=== PATIENT | female | born 1995 | race Caucasian/White ===

== ENCOUNTER → 2017-11-02 14:42 | Outpatient (CLI) | payer OTHER, SELFPAY ==
[2017-11-02 16:26] LABS: Hemoglobin 11.5 g/dL (12.0-16.0)
[2017-11-02 16:30] LABS: GTT (PREG) 1 Hour PP 50gm Dose 133 mg/dL (76-139)
== END ==
PROVIDERS: Visit Provider Family Medicine
DX: Z34.93 Encounter for supervision of normal pregnancy, unspecified, third trimester (principal); Z3A.30 30 weeks gestation of pregnancy
CPT/HCPCS: 36415; 82950; 85014; 85018

== ENCOUNTER 2017-11-13 07:36 | Outpatient (CLI) | payer OTHER, SELFPAY ==
[2017-11-13] MEDS: TERBUTALINE 1 MG/ML VIAL 0.25 MG SUBCUT (08:30)
--- NOTE | 2017-11-13 13:04 | PM.OBTRLD ---
Visit Information Visit Information Date of evaluation: 11/13/17 Primary OB Provider: Partha Morrissey On-call OB Provider: Khadijah Layne Reason for Evaluation: Yes pre-term labor Evaluation Evaluation Baseline heart rate: 145 Variability: Moderate (11-25) monitor accelerations: Present monitor decelerations: Absent Contraction Frequency (minutes): 15 Uterine Contraction Intensity: Mild Category of Tracing: I Diagnosis, Plan/Disposition Final Diagnosis (1) 32 weeks gestation of : Current Visit: No Status: Acute (2) contractions: Current Visit: No Status: Acute Plan/Disposition Plan: Assesment: 22-year-old 2 para 1 at 32 weeks gestation with contractions Plan: Subcu terbutaline 0.25 mg x1 Push fluids Discharge to home Follow up with Dr. Morrissey later this week
== END 2017-11-13 08:40 | disposition home or self-care (01) ==
LOC: LABOR 11-14 13:27 → OB 11-14 13:27
PROVIDERS: Visit Provider Family Medicine
DX: O60.03 Preterm labor without delivery, third trimester (principal); Z3A.32 32 weeks gestation of pregnancy
CPT/HCPCS: 59025; 96372; G0378; G0379

== ENCOUNTER → 2017-12-09 11:19 | Outpatient (CLI) | payer OTHER, SELFPAY ==
[2017-12-10 08:40] LABS: Strep Grp B PCR NEG for Grp B Strep
== END ==
PROVIDERS: Visit Provider Family Medicine
DX: Z3A.35 35 weeks gestation of pregnancy (principal)
CPT/HCPCS: 87653

== ENCOUNTER 2018-01-01 00:49 | Inpatient (IN) | payer OTHER, SELFPAY ==
[2018-01-01 01:57] LABS: Add Manual Diff / Slide Review NO; Basophils Percent Auto 0.3 % (0-2); Eosinophils Percent Auto 0.8 % (2-4); Hematocrit 37.8 % (36-46); Hemoglobin 12.9 g/dL (12.0-16.0); Lymphocytes Percent Auto 21.8 % (25-40); Mean Corpuscular HGB Conc 34.2 % (30-36); Mean Corpuscular Hemoglobin 32.4 PG (26-34); Mean Corpuscular Volume 94.7 fL (80-100); Monocytes Percent Auto 7.7 % (3-14); Neutrophils Absolute Auto 9200 /uL (3000-5900); Neutrophils Percent Auto 69.4 % (50-75); Platelet Count 194 X10^3/uL (150-400); Red Blood Cell Count 3.99 X10^6/uL (4.0-5.2); Red Cell Distribution Width 14.5 % (11.6-14.8); White Blood Cell Count 13.2 X10^3/uL (4.5-11.0)
[2018-01-01] MEDS: LACTATED RINGERS 1,000 ML 100 ML IV (02:26)
[2018-01-01 03:04] VITALS: BP 105/52
--- NOTE | 2018-01-01 03:19 | PM.OBHP.1 ---
OB HPI History of Present Illness Chief complaint: EVALUATION OF LABOR Narrative: Mohsen Mike is a 22 year old female G2 para 1 LMP 04/02/2017 with estimated due date 01/07/2018 ultrasound estimated due date 01/07/2018 which puts her at 39+ weeks gestational age. Patient had routine care establish care at the [facility]. Transferred at 28 weeks. Patient had a total weight gain of approximately 25 lb. Patient has a history complicated previously by labor. During this she had some contractions and was on nifedipine. Patient presented to the labor and delivery floor in labor. She was at home in bed her water broke at approximately 11:00 p.m.. She began to present in active labor she presented to Labor and delivery with clear fluid reassuring heart tones and 5-6 cm dilated. Strip was category 1. labs show blood type B positive antibody screen negative rubella immune VDRL nonreactive urine cultures negative hepatitis-B surface antigen negative GBS negative hematocrit 33.0. Patient denies any significant past medical history. She is not on any radicular medications. Past surgical history of wisdom teeth. Evaluation Evaluation Laboratory results: Laboratory Tests 01/01/18 01/01/18 01:40 01:40 WBC 13.2 H RBC 3.99 L Hgb 12.9 Hct 37.8 MCV 94.7 MCH 32.4 MCHC 34.2 RDW 14.5 Plt Count 194 Neut % (Auto) 69.4 Lymph % (Auto) 21.8 L [place] % (Auto) 7.7 Eos % (Auto) 0.8 L Baso % (Auto) 0.3 Neut # (Auto) 9200 H Blood Type B Positive Antibody Screen Negative [facility] Social History Smoking Status: Former smoker Meds Home Medications Medication Instructions Recorded Confirmed Type ondansetron HCl [Zofran] 4 mg PO Q12H 11/13/17 11/13/17 History nifedipine 10 mg capsule 10 mg PO Q6H PRN #30 cap 11/17/17 Rx nifedipine ER 30 mg 30 mg PO Q12H #60 tab 11/25/17 Rx tablet,extended release Allergies Allergy/AdvReac Type Severity Reaction Status Date / Time No Known Drug Allergies Allergy Verified 11/13/17 08:22 Exam Vital Signs (past 8 hours): - 01/01/18 03:04 Blood Pressure 105/52 L Narrative Exam Narrative: . General: Alert no apparent distress. Affect is appropriate. [place] it is uncomfortable. HEENT: Neck is supple without lymphadenopathy pupils equal round and reactive. Cardio: S1-S2 regular rate and rhythm. Respiratory: Lungs clear to auscultation. Abdomen: Gravid. Extremities: Normal deep tendon reflexes trace edema. [place]: [place] regularly every 3-5 minutes with 60 minute contractions moderate and strength. heart tones: Good heart tones 130s to 140s reactive strip. Objective Labs Result Diagrams: 01/01/18 01:40 Labs: Laboratory Results - last 24 hr 01/01/18 01/01/18 01:40 01:40 WBC 13.2 H RBC 3.99 L Hgb 12.9 Hct 37.8 MCV 94.7 MCH 32.4 MCHC 34.2 RDW 14.5 Plt Count 194 Neut % (Auto) 69.4 Lymph % (Auto) 21.8 L [place] % (Auto) 7.7 Eos % (Auto) 0.8 L Baso % (Auto) 0.3 Neut # (Auto) 9200 H Blood Type B Positive Antibody Screen Negative Assessment and Plan Plan: Plan: 21-year-old female G2 para 1 at 39+ weeks in active labor spontaneous rupture of membranes at home at 11:00 p.m. with clear fluid. She was in active labor. Presented to the Center with category 1 strip. Patient had normal blood tests. He desires an epidural which was provided. Patient will continue to proceed with routine labor care.
--- NOTE | 2018-01-01 03:58 | PM.OBPRVD ---
Delivery date: 01/01/18 Intrapartal events: None Induction method: none Delivery monitor: external FHT Route of delivery: Episiotomy description: None Laceration description: None Estimated blood loss (mL): 250 Anesthesia type: Epidural Narrative: Stage I of labor 4 hr. Spontaneous rupture membranes at home clear fluid. No augmentation of labor. heart tones are reassuring category 1. Epidural anesthesia provided with great results. Stage II approximately 45 min. Delivery of viable male under epidural anesthesia. Category 1 tracing throughout. Mom pushed to and had good descent of the baby. Baby was delivered in occiput anterior position. Delivery of head without difficulty there was no nuchal cord and delivery with shoulders. Baby was placed on mother's abdomen baby was vigorous and active. Had spontaneous cry. Mom was given 10 units of IM Pitocin without difficulty. Stage III approximately 5 min delivery of intact placenta with three-vessel cord. Attention was took an afterwards to the vagina and cervix are is no cervix or vaginal lacerations. Baby had a firm uterus. Bleeding was 250 cc total. Mom and baby were resting comfortably afterwards
[2018-01-01] MEDS: IBUPROFEN 600 MG TABLET PO ×4 (05:13→23:13)
[2018-01-01] MEDS: DOCUSATE 250 MG CAPSULE PO (09:24)
[2018-01-01] MEDS: PRENATAL VIT,CALC/IRON/FOLIC 1 TABLET 1 TAB PO (09:24)
[2018-01-01] MEDS: ACETAMINOPHEN 325 MG TABLET 650 MG PO ×2 (18:37→23:12)
[2018-01-02 05:20] LABS: Hematocrit 35.4 % (36-46)
[2018-01-02] MEDS: IBUPROFEN 600 MG TABLET PO (08:16)
[2018-01-02] MEDS: DOCUSATE 250 MG CAPSULE PO (08:16)
[2018-01-02] MEDS: PRENATAL VIT,CALC/IRON/FOLIC 1 TABLET 1 TAB PO (08:16)
--- NOTE | 2018-01-02 08:31 | P.DS_ITS ---
History of Present Illness Chief complaint: LABOR & DELIVERY Discharge Providers Date of admission: 01/01/18 01:24 Consults: 01/01/18 05:03 Consult to [employer] Routine Comment: Discharge provider: Partha Morrissey MD Summary Discharge Diagnosis: Term intrauterine with Delivery of viable male infant Routine care Hospital Course: Patient was admitted to the hospital with active labor spontaneous rupture of membranes. Patient had a normal course of labor. Received epidural anesthesia. Delivered viable male without any difficulty. she did well. Her pain was well controlled she was ambulating eating tolerating her diet. Blood pressure vital signs and blood counts remained stable. The time of discharge. Breast-feeding was working well and she will be discharged home for follow-up appointment in 6 weeks. Status at Discharge Functional status at discharge: independent ambulation Exam Narrative Exam Narrative: General: Alert no apparent distress. Affect is appropriate. [place] it is uncomfortable. HEENT: Neck is supple without lymphadenopathy pupils equal round and reactive. Cardio: S1-S2 regular rate and rhythm. Respiratory: Lungs clear to auscultation. Abdomen: Uterus firm. Incision clean dry and intact. Extremities: Normal deep tendon reflexes trace edema. Objective Labs Result Diagrams: 01/02/18 04:53 Labs: Laboratory Results - last 24 hr 01/02/18 04:53 Hgb 12.0 Hct 35.4 L Discharge Plan Discharge Plan Patient Disposition: Home, Self-Care Discharge comment: Discharge home follow-up in 6 weeks. Discharge Med Rec/Prescriptions Prescriptions: New hydrocodone-acetaminophen 5-325 mg Tablet 1 tab PO Q4HR Qty: 15 RF: 0 ibuprofen 600 mg Tablet 600 mg PO Q6HR PRN (Reason: Pain, Mild (1-3)) Qty: 30 RF: 0 docusate sodium 250 mg Capsule 250 mg PO DAILY Qty: 30 RF: 0 vit,[id number] [Prenatabs Rx] 29 mg iron- 1 mg Tablet 1 tab PO DAILY 90 Days RF: 0 Discontinued nifedipine 30 mg tablet extended release 30 mg PO Q12H Qty: 60 RF: 0 nifedipine 10 mg capsule 10 mg PO Q6H PRN (Reason: Contractions) Qty: 30 RF: 0 ondansetron HCl [Zofran] 4 mg Tablet 4 mg PO Q12H RF: 0 Provider Discharge Instructions Diet comment: General diet Activity: As tolerated Discharge Data Attending Provider: Partha Morrissey Admit Date/Time: 01/01/18 01:24
[2018-01-02 09:13] VITALS: BP 114/81; PULSE 89; RESP 16; TEMP 36.6
== END 2018-01-02 12:31 | disposition home or self-care (01) | DRG 775 ==
PROVIDERS: Admitting Provider Obstetrics & Gynecology; Visit Provider Family Medicine
DX: O80 Encounter for full-term uncomplicated delivery (principal); Z37.0 Single live birth; Z3A.39 39 weeks gestation of pregnancy
CPT/HCPCS: 01967; 36415; 59050; 59410; 84112; 85014; 85018; 85025; 86850; 86900; 86901; G0378; G0379

== ENCOUNTER 2018-03-22 10:16 | Emergency (ER) | payer OTHER, SELFPAY ==
[2018-03-22 10:19] VITALS: BP 137/81; PULSE 114; RESP 18; O2SAT 100; BMI 27.6
--- NOTE | 2018-03-22 12:19 | ED.SKABFB ---
HPI - Skin/Abscess/Foreign Bdy <CUONG Cheng - Last Filed: 03/22/18 13:24> General Chief complaint: Skin/Abscess/Foreign Body Stated complaint: wound on lft leg oozing piss Time Seen by Provider: 03/22/18 12:05 Source: patient Mode of arrival: ambulatory Limitations: no limitations History of Present Illness HPI narrative: Patient presents with chief complaint of wound on her left leg since November. She suspects it was a spider bite at that point time. [place] and has been referred to Dermatology. She most recently saw physician yesterday For it, and received a dermatology referral. However over night she developed low-grade fevers, some purulent drainage from the wound and is concerned about infection while she waits for her dermatology appointment. she denies any nausea vomiting or diarrhea but complains of low-grade temperatures for the past 2 days. She denies any lightheadedness or dizziness. she complains of overall malaise and fatigue. She is breast feeding. Related Data Previous Rx's Medication Instructions Recorded vit,[id number] 1 tab PO DAILY 90 Days tab 01/02/18 [Prenatabs Rx] cephalexin 500 mg PO TID #30 cap 03/22/18 Allergies Allergy/AdvReac Type Severity Reaction Status Date / Time No Known Drug Allergies Allergy Verified 03/22/18 10:23 Review of Systems <[facility] - Last Filed: 03/22/18 13:24> Review of Systems GENERAL: See HPI HEENT: Denies sinus pain, ear pain, sore throat, difficulty swallowing, dizziness. RESPIRATORY: Denies dyspnea, cough, wheezing, hemoptysis, sputum. CARDIOVASCULAR: Denies chest pain, palpitations, orthopnea, edema, GASTROINTESTINAL: Denies nausea, vomiting, abdominal pain, diarrhea, constipation, melena. : Denies dysuria, frequency, incontinence, hematuria, urinary retention. MUSCULOSKELETAL: denies weakness, joint pain, or bony pain SKIN: see HPI NEUROLOGIC: Denies weakness, headache, numbness, change in speech, confusion, seizures, incoordination. PSYCHIATRIC: No concerning psychosocial issues. 12 point review of systems is negative except for those stated above Exam <[facility] - Last Filed: 03/22/18 13:24> Narrative Exam Narrative: GENERAL: This is a well-nourished, well-developed patient, in mild distress. HEAD: Atraumatic. Normocephalic. No temporal or scalp tenderness. EYES: Pupils equal round and reactive. Extraocular motions intact. No scleral icterus. No injection or drainage. ENT: Nose without bleeding, purulent drainage or septal hematoma. Throat without erythema, tonsillar hypertrophy or exudate. Uvula midline. Airway patent. NECK: Trachea midline. No JVD or lymphadenopathy. Supple, nontender, no meningeal signs. CARDIOVASCULAR: Regular rate and rhythm without murmurs, gallops, or rubs. RESPIRATORY: Clear to auscultation. Breath sounds equal bilaterally. No wheezes, rales, or rhonchi. GASTROINTESTINAL: Abdomen soft, non-tender, nondistended. No hepato-splenomegaly, or palpable masses. No guarding. EXTREMITIES: No clubbing, cyanosis, or edema. No joint tenderness, effusion, or edema noted. BACK: Nontender without deformity or crepitance. No flank tenderness. NEURO: AOx3. SKIN: 4 x 3 cm area of erythema lateral aspect of left thigh. No palpable abscess or fluctuance. Some dried crusty skin over it. Dark red in Center, with purulent drainage noted. No area of openness. Initial Vital Signs Initial Vital Signs: Vital Signs Pulse Rate 114 H 03/22/18 10:19 Respiratory Rate 18 03/22/18 10:19 Blood Pressure 137/81 03/22/18 10:19 Pulse Oximetry 100 03/22/18 10:19 <Sharon Bello MD - Last Filed: 03/22/18 21:19> Initial Vital Signs Initial Vital Signs: Vital Signs Pulse Rate 114 H 03/22/18 10:19 Respiratory Rate 18 03/22/18 10:19 Blood Pressure 137/81 03/22/18 10:19 Pulse Oximetry 100 03/22/18 10:19 Course <ROGELIO Cheng - Last Filed: 03/22/18 13:24> Orders Ordered: ED Orders 03/22/18 12:50 Wound Culture and Gram Stain Stat Vital Signs - 8 hr 03/22/18 10:19 03/22/18 12:47 Pulse Rate 114 H 76 Respiratory Rate 18 15 Blood Pressure 137/81 Blood Pressure [Left Arm] 109/60 Pulse Oximetry 100 98 <Sharon Bello MD - Last Filed: 03/22/18 21:19> Orders Ordered: ED Orders 03/22/18 12:50 Wound Culture and Gram Stain Stat Vital Signs - 8 hr 03/22/18 10:19 03/22/18 12:47 Pulse Rate 114 H 76 Respiratory Rate 18 15 Blood Pressure 137/81 Blood Pressure [Left Arm] 109/60 Pulse Oximetry 100 98 MDM - Skin/Abscess/Foreign Bdy <YURI Cheng-BC - Last Filed: 03/22/18 13:24> MDM Narrative Medical decision making narrative: Patient presents with wound on left leg ongoing since November. She has seen physicians at least 3 times for this and is waiting on a dermatology consult. However given her recent onset of low-grade fevers and purulent drainage from the wound, I will do a course of antibiotics at this point time while she waits for Dermatology. The wound apparently became infected. Given that she is breast-feeding at this time, I will use Keflex. a wound culture was taken from the purulent drainage. I discussed at length return precautions of fever, worsening or no improvement. Discussed keeping dermatology appointment. Patient had no questions or concerns upon discharge. Discharge Plan Departure Patient Disposition: Home Clinical Impression: Wound infection Discharge Date/Time: 03/22/18 12:52 Interventions: ED Discharge Assessment Last Done: 03/22/18 12:52 Instructions: DI for Wound Infection Activity Restrictions/Additional Instructions: Given your fever, malaise and the drainage from her wound, I am starting you on an antibiotic for an infection in her wound. This antibiotic is safe for breast-feeding. I also took a wound culture of the drainage, to make sure that the antibiotic is effective for the infection you have. Please follow-up with primary care and follow-up with dermatology scheduled. Please be re-evaluated for any severe fevers, worsening of the wound after several doses of antibiotics, inability to keep down fluids or any acute concerns. Prescriptions: New cephalexin 500 mg capsule 500 mg PO TID Qty: 30 RF: 0 No Action vit,[id number] [Prenatabs Rx] 29 mg iron- 1 mg Tablet 1 tab PO DAILY 90 Days RF: 0 Referrals: [facility] [Outside]
--- NOTE | 2018-03-22 12:26 | ED_ITS ---
HPI - Skin/Abscess/Foreign Bdy <CUONG Cheng - Last Filed: 03/22/18 13:24> General Chief complaint: Skin/Abscess/Foreign Body Stated complaint: wound on lft leg oozing piss Time Seen by Provider: 03/22/18 12:05 Source: patient Mode of arrival: ambulatory Limitations: no limitations History of Present Illness HPI narrative: Patient presents with chief complaint of wound on her left leg since November. She suspects it was a spider bite at that point time. [place] and has been referred to Dermatology. She most recently saw physician yesterday For it, and received a dermatology referral. However over night she developed low-grade fevers, some purulent drainage from the wound and is concerned about infection while she waits for her dermatology appointment. she denies any nausea vomiting or diarrhea but complains of low-grade temperatures for the past 2 days. She denies any lightheadedness or dizziness. she complains of overall malaise and fatigue. She is breast feeding. Related Data Previous Rx's Medication Instructions Recorded vit,[id number] 1 tab PO DAILY 90 Days tab 01/02/18 [Prenatabs Rx] cephalexin 500 mg PO TID #30 cap 03/22/18 Allergies Allergy/AdvReac Type Severity Reaction Status Date / Time No Known Drug Allergies Allergy Verified 03/22/18 10:23 [facility] Systems [facility] Last Filed: 03/22/18 13:24> Review of Systems GENERAL: See HPI HEENT: Denies sinus pain, ear pain, sore throat, difficulty swallowing, dizziness. RESPIRATORY: Denies dyspnea, cough, wheezing, hemoptysis, sputum. CARDIOVASCULAR: Denies chest pain, palpitations, orthopnea, edema, GASTROINTESTINAL: Denies nausea, vomiting, abdominal pain, diarrhea, constipation, melena. : Denies dysuria, frequency, incontinence, hematuria, urinary retention. MUSCULOSKELETAL: denies weakness, joint pain, or bony pain SKIN: see HPI NEUROLOGIC: Denies weakness, headache, numbness, change in speech, confusion, seizures, incoordination. PSYCHIATRIC: No concerning psychosocial issues. 12 point review of systems is negative except for those stated above Exam <[facility] Last Filed: 03/22/18 13:24> Narrative Exam Narrative: GENERAL: This is a well-nourished, well-developed patient, in mild distress. HEAD: Atraumatic. Normocephalic. No temporal or scalp tenderness. EYES: Pupils equal round and reactive. Extraocular motions intact. No scleral icterus. No injection or drainage. ENT: Nose without bleeding, purulent drainage or septal hematoma. Throat without erythema, tonsillar hypertrophy or exudate. Uvula midline. Airway patent. NECK: Trachea midline. No JVD or lymphadenopathy. Supple, nontender, no meningeal signs. CARDIOVASCULAR: Regular rate and rhythm without murmurs, gallops, or rubs. RESPIRATORY: Clear to auscultation. Breath sounds equal bilaterally. No wheezes , rales, or rhonchi. GASTROINTESTINAL: Abdomen soft, non-tender, nondistended. No hepato-splenomegaly , or palpable masses. No guarding. EXTREMITIES: No clubbing, cyanosis, or edema. No joint tenderness, effusion, or edema noted. BACK: Nontender without deformity or crepitance. No flank tenderness. NEURO: AOx3. SKIN: 4 x 3 cm area of erythema lateral aspect of left thigh. No palpable abscess or fluctuance. Some dried crusty skin over it. Dark red in [place], with purulent drainage noted. No area of openness. Initial Vital Signs Initial Vital Signs: Vital Signs Pulse Rate 114 H 03/22/18 10:19 Respiratory Rate 18 03/22/18 10:19 Blood Pressure 137/81 03/22/18 10:19 Pulse Oximetry 100 03/22/18 10:19 <Sharon Bello MD - Last Filed: 03/22/18 21:19> Initial Vital Signs Initial Vital Signs: Vital Signs Pulse Rate 114 H 03/22/18 10:19 Respiratory Rate 18 03/22/18 10:19 Blood Pressure 137/81 03/22/18 10:19 Pulse Oximetry 100 03/22/18 10:19 Course <ROGELIO Cheng - Last Filed: 03/22/18 13:24> Orders Ordered: ED Orders 03/22/18 12:50 Wound Culture and Gram Stain Stat Vital Signs - 8 hr 03/22/18 10:19 03/22/18 12:47 Pulse Rate 114 H 76 Respiratory Rate 18 15 Blood Pressure 137/81 Blood Pressure [Left Arm] 109/60 Pulse Oximetry 100 98 <Sharon Bello MD - Last Filed: 03/22/18 21:19> Orders Ordered: ED Orders 03/22/18 12:50 Wound Culture and Gram Stain Stat Vital Signs - 8 hr 03/22/18 10:19 03/22/18 12:47 Pulse Rate 114 H 76 Respiratory Rate 18 15 Blood Pressure 137/81 Blood Pressure [Left Arm] 109/60 Pulse Oximetry 100 98 MDM - Skin/Abscess/Foreign Bdy <YURI Cheng-BC - Last Filed: 03/22/18 13:24> MDM Narrative Medical decision making narrative: Patient presents with wound on left leg ongoing since November. She has seen physicians at least 3 times for this and is waiting on a dermatology consult. However given her recent onset of low-grade fevers and purulent drainage from the wound, I will do a course of antibiotics at this point time while she waits for Dermatology. The wound apparently became infected. Given that she is breast-feeding at this time, I will use Keflex. a wound culture was taken from the purulent drainage. I discussed at length return precautions of fever, worsening or no improvement. Discussed keeping dermatology appointment. Patient had no questions or concerns upon discharge. Discharge Plan Departure Patient Disposition: Home Clinical Impression: Wound infection Discharge Date/Time: 03/22/18 12:52 Interventions: ED Discharge Assessment Last Done: 03/22/18 12:52 Instructions: DI for Wound Infection Activity Restrictions/Additional Instructions: Given your fever, malaise and the drainage from her wound, I am starting you on an antibiotic for an infection in her wound. This antibiotic is safe for breast-feeding. I also took a wound culture of the drainage, to make sure that the antibiotic is effective for the infection you have. Please follow-up with primary care and follow-up with dermatology scheduled. Please be re-evaluated for any severe fevers, worsening of the wound after several doses of antibiotics , inability to keep down fluids or any acute concerns. Prescriptions: New cephalexin 500 mg capsule 500 mg PO TID Qty: 30 RF: 0 No Action vit,[id number] [Prenatabs Rx] 29 mg iron- 1 mg Tablet 1 tab PO DAILY 90 Days RF: 0 Referrals: [facility] [Outside]
[2018-03-22 12:47] VITALS: BP 109/60; PULSE 76; RESP 15; O2SAT 98
== END 2018-03-22 12:52 | disposition home or self-care (01) ==
PROVIDERS: Emergency Provider Nurse Practitioner Family
DX: S81.802A Unspecified open wound, left lower leg, initial encounter (principal); L08.9 Local infection of the skin and subcutaneous tissue, unspecified
CPT/HCPCS: 87070; 87075; 87205; 99283

== ENCOUNTER 2018-07-01 14:32 | Emergency (ER) | payer OTHER, SELFPAY ==
[2018-07-01] MEDS: ALBUTEROL/IPRATROPIUM 3 ML AMPUL INH (14:50)
[2018-07-01 14:53] VITALS: BP 137/83; PULSE 114; PULSE 118; RESP 20; TEMP 37.1; O2SAT 100; O2SAT 98
[2018-07-01 14:57] VITALS: PULSE 106; RESP 14; O2SAT 98
[2018-07-01] MEDS: ALBUTEROL 2.5 MG/3 ML NEB (ADULT) INH ×2 (15:00→16:18)
--- NOTE | 2018-07-01 15:01 | ED.SOB ---
HPI - SOB/Dyspnea <Farzaneh Canales PA-C - Last Filed: 07/01/18 22:05> General Chief Complaint: Shortness of Breath/Dyspnea Stated Complaint: shortness of breath, cough Time Seen by Provider: 07/01/18 14:59 Source: patient Mode of arrival: ambulatory Limitations: no limitations History of Present Illness This healthy 22-year-old female with history of rare reactive airways comes in due to recurrent, worsening cough for the last 2 days. She states that she gave in December, not breast feeding currently. She had prolonged cough and respiratory symptoms March to April, but did get better aside from a persistent rattling sensation on the left side of her chest. Five weeks ago, she developed some worsening recurrent cough again and was started on inhaler. She states that the rattling in her chest got better with that, but she has had some persistent cough, mixed wet and dry. She states this had largely started to resolve and she went for a run on . For the last 2 days, especially today, she has had acutely worsening cough and tight chest with cough fits. She has not noted any wheeze but feels short of breath with these. She has not had any fever. She does have sinus and nasal congestion and ear pressure. She denies ache, pain in the extremities, other new symptoms with this. She states cough continues to be mixed wet and dry. She did need an inhaler 1 other time in the past in the setting of bronchitis. She has not been treated with steroids. She notes that her infant son was just diagnosed with RSV. Related Data Previous Rx's Medication Instructions Recorded cephalexin 500 mg PO TID #30 cap 03/22/18 azithromycin See Label Instructions .ROUTE 07/01/18 .COMPLEX #6 tab hydrocodone-acetaminophen [[place]] 1 tab PO Q4-6H PRN #10 tab 07/01/18 prednisone 40 mg PO DAILY 3 Days #6 tab 07/01/18 Allergies Allergy/AdvReac Type Severity Reaction Status Date / Time No Known Drug Allergies Allergy Verified 03/22/18 10:23 Review of Systems <Farzaneh Canales PA-C - Last Filed: 07/01/18 22:05> Review of Systems ROS Unobtainable: All systems reviewed & are unremarkable except as noted in HPI and below Exam <Farzaneh Canales PA-C - Last Filed: 07/01/18 22:05> Narrative Exam Narrative: GENERAL APPEARANCE: Patient coughing hard, in NAD HEAD: No sinus TTP. EYES: PERRL, EOMI. EARS: Normal auditory canals, TMS intact with normal light reflexes. ORAL CAVITY: Normal oropharynx. THROAT: Mild erythema, no exudate NECK/THYROID: Neck supple, full range of motion, few small anterior cervical nodes LUNGS: Clear to auscultation bilaterally, coarse, barky cough frequently on exam HEART: RRR without murmur, nl S1, S2, no S3 or S4. EXTREMITIES: No edema, no calf tenderness DERMATOLOGIC: No exanthem Initial Vital Signs Initial Vital Signs: Vital Signs Temperature 98.8 F 07/01/18 14:53 Pulse Rate 118 H 07/01/18 14:53 Respiratory Rate 20 07/01/18 14:53 Blood Pressure 137/83 07/01/18 14:53 Pulse Oximetry 98 07/01/18 14:53 <Santiago Munguia DO - Last Filed: 07/02/18 07:06> Initial Vital Signs Initial Vital Signs: Vital Signs Temperature 98.8 F 07/01/18 14:53 Pulse Rate 118 H 07/01/18 14:53 Respiratory Rate 20 07/01/18 14:53 Blood Pressure 137/83 07/01/18 14:53 Pulse Oximetry 98 07/01/18 14:53 Course <MARIE Ashby Last Filed: 07/01/18 22:05> Additional Information: Patient has tried numerous cough medicines prescribed for her. She has harsh, persistent cough, improved a little bit after nebulizer treatments and hydrocodone/acetaminophen. She has posttussive vomiting. She is not short of breath aside from coughing spells and is afebrile. She was given azithromycin although suspect pertussis is not likely given her overall good health, vaccination status and lack of known exposures. She will continue her inhaler and she was given steroids to help with reactive airways. She was given a small prescription of hydrocodone/acetaminophen, which she has taken without problems in the past, to help with her cough. She agreed to return if any acutely worsening symptoms, otherwise follow up with PCP in the next 2-3 days for recheck Orders Ordered: Discontinued Medications Hydrocodone Bitart/Acetaminophen ([place] 5/325) 2 tab PO NOW ONE Stop: 07/01/18 16:45 Last Admin: 07/01/18 17:04 Dose: 2 tab Albuterol (Ventolin) 2.5 mg INH NOW ONE Stop: 07/01/18 15:06 Last Admin: 07/01/18 15:00 Dose: 2.5 mg Albuterol (Ventolin) 2.5 mg INH NOW ONE Stop: 07/01/18 16:10 Last Admin: 07/01/18 16:18 Dose: 2.5 mg Albuterol/Ipratropium (Duoneb) 3 ml INH NOW ONE Stop: 07/01/18 15:02 Last Admin: 07/01/18 14:50 Dose: 3 ml Guaifenesin/Codeine Phosphate (Guaifenesin/Codeine Liquid) 10 ml PO NOW ONE Stop: 07/01/18 15:11 Last Admin: 07/01/18 15:38 Dose: 10 ml Prednisone (Deltasone) 40 mg PO NOW ONE Stop: 07/01/18 15:11 Last Admin: 07/01/18 15:22 Dose: 40 mg Vital Signs - 8 hr 07/01/18 14:53 07/01/18 14:57 07/01/18 16:18 Temperature 98.8 F Pulse Rate 114 H 106 H 89 Respiratory Rate 20 14 14 Blood Pressure 137/83 Blood Pressure [Left Arm] Pulse Oximetry 100 98 99 07/01/18 16:22 07/01/18 17:50 Temperature Pulse Rate 93 H 107 H Respiratory Rate 16 Blood Pressure 117/81 Blood Pressure [Left Arm] 100/73 Pulse Oximetry 100 98 <Santiago Munguia DO - Last Filed: 07/02/18 07:06> Orders Ordered: Discontinued Medications Hydrocodone Bitart/Acetaminophen ([place] 5/325) 2 tab PO NOW ONE Stop: 07/01/18 16:45 Last Admin: 07/01/18 17:04 Dose: 2 tab Albuterol (Ventolin) 2.5 mg INH NOW ONE Stop: 07/01/18 15:06 Last Admin: 07/01/18 15:00 Dose: 2.5 mg Albuterol (Ventolin) 2.5 mg INH NOW ONE Stop: 07/01/18 16:10 Last Admin: 07/01/18 16:18 Dose: 2.5 mg Albuterol/Ipratropium (Duoneb) 3 ml INH NOW ONE Stop: 07/01/18 15:02 Last Admin: 07/01/18 14:50 Dose: 3 ml Guaifenesin/Codeine Phosphate (Guaifenesin/Codeine Liquid) 10 ml PO NOW ONE Stop: 07/01/18 15:11 Last Admin: 07/01/18 15:38 Dose: 10 ml Prednisone (Deltasone) 40 mg PO NOW ONE Stop: 07/01/18 15:11 Last Admin: 07/01/18 15:22 Dose: 40 mg Vital Signs - 8 hr 07/01/18 14:53 07/01/18 14:57 07/01/18 16:18 Temperature 98.8 F Pulse Rate 114 H 106 H 89 Respiratory Rate 20 14 14 Blood Pressure 137/83 Blood Pressure [Left Arm] Pulse Oximetry 100 98 99 07/01/18 16:22 07/01/18 17:50 Temperature Pulse Rate 93 H 107 H Respiratory Rate 16 Blood Pressure 117/81 Blood Pressure [Left Arm] 100/73 Pulse Oximetry 100 98 MDM - SOB/Dyspnea <Farzaneh Canales PA-C - Last Filed: 07/01/18 22:05> Lab Data Lab Results 07/01/18 Range/Units 15:25 Influenza A & B (PCR) Negative (Negative) RSV (PCR) Cancelled Imaging Data Chest x-ray: Radiologist's impression: 15 Farzaneh Canales PA-C Find Patient Imaging ACTIVITY DATE EXAM STATUS AUTHOR 07/01/18 15:[address] [address] XRay Report Signed Patient: Mohsen Mike [facility]#: [id number] : 1995Acct:[id number] Age/Sex: 22 / FDate of Service: 07/01/18 Loc: ED Accession Number: [id number] Procedure: XR chest 2V Ordering Provider: Farzaneh Canales P.A-C PROCEDURE: XR CHEST 2V INDICATIONS: cough, sob TECHNIQUE: 2 views of the chest were acquired. COMPARISON: None. FINDINGS: Surgical changes and devices: None. Lungs and pleura: No pleural effusions or pneumothorax. Lungs are clear. Mediastinum: Mediastinal contours are normal. Heart size is normal. Bones and chest wall: No suspicious bony abnormalities. Soft tissues appear unremarkable. IMPRESSION: Chest without acute cardiopulmonary abnormalities. No focal air space disease. Dictated by: Edinson Martinez M.D. on 07/01/2018 at 15:56 Approved by: Edinson Martinez M.D. on 07/01/2018 at 15:56 <Santiago Munguia, - Last Filed: 07/02/18 07:06> Lab Data Lab Results 07/01/18 Range/Units 15:25 Influenza A & B (PCR) Negative (Negative) RSV (PCR) Cancelled Discharge Plan Departure Patient Disposition: Home Clinical Impression: Reactive airway disease, Bronchitis Discharge Date/Time: 07/01/18 17:51 Interventions: ED Discharge Assessment Last Done: 07/01/18 17:50 Instructions: DI for Acute Bronchitis, DI for Reactive Airway Disease-Adult Activity Restrictions/Additional Instructions: Please return to the ED as we talked about if you have any acutely worsening symptoms. Otherwise, please use your inhaler as often as needed for tight chest or coughing spells. Please continue the steroids (take your next dose of prednisone tomorrow) for the next few days. I have given you a prescription for azithromycin on the off chance that you have pertussis (whooping cough), though I think that is very unlikely given that you are vaccinated, young and do not have any known exposures. This can help shorten the course of it. It is more likely that you have a viral infection and that you are coughing and tight in your chest due to reactive airways, like you have had in the past. I have given you a prescription for hydrocodone/acetaminophen, since the previous cough medicines you have not tried and this seems to help a little bit. This may help you get some rest over the weekend. You can take it if needed, but remember it can make you sleepy and not to drive. You may wish to add some [id number] guaifenesin (i.e. Mucinex) to help thin the secretions. Please call your PCP 1st thing on Tuesday morning and be seen for follow-up in the next 48-72 hours to assess your progress on the steroids and these medications. Prescriptions: New azithromycin 250 mg tablet See Label Instructions .ROUTE .COMPLEX Qty: 6 RF: 0 hydrocodone-acetaminophen [[place]] 5-325 mg tablet 1 tab PO Q4-6H PRN (Reason: cough) Qty: 10 RF: 0 prednisone 20 mg tablet 40 mg PO DAILY 3 Days Qty: 6 RF: 0 No Action cephalexin 500 mg capsule 500 mg PO TID Qty: 30 RF: 0 Referrals: [facility] [Provider Group] <Santiago Munguia, - Last Filed: 07/02/18 07:06> Cosign ED Attending Alex Attestation: I was available for consultation during this patient's emergency department encounter
--- NOTE | 2018-07-01 15:09 | DI.RAD.S_ITS ---
PROCEDURE: XR CHEST 2V INDICATIONS: cough, sob TECHNIQUE: 2 views of the chest were acquired. COMPARISON: None. FINDINGS: Surgical changes and devices: None. Lungs and pleura: No pleural effusions or pneumothorax. Lungs are clear. Mediastinum: Mediastinal contours are normal. Heart size is normal. Bones and chest wall: No suspicious bony abnormalities. Soft tissues appear unremarkable. IMPRESSION: Chest without acute cardiopulmonary abnormalities. No focal air space disease. Dictated by: Edinson Martinez M.D. on 07/01/2018 at 15:56 Approved by: Edinson Martinez M.D. on 07/01/2018 at 15:56
[2018-07-01] MEDS: predniSONE 20 MG TABLET 40 MG PO (15:22)
--- NOTE | 2018-07-01 15:30 | ED_ITS ---
HPI - SOB/Dyspnea <Farzaneh Canales PA-C - Last Filed: 07/01/18 22:05> General Chief Complaint: Shortness of Breath/Dyspnea Stated Complaint: shortness of breath, cough Time Seen by Provider: 07/01/18 14:59 Source: patient Mode of arrival: ambulatory Limitations: no limitations History of Present Illness This healthy 22-year-old female with history of rare reactive airways comes in due to recurrent, worsening cough for the last 2 days. She states that she gave in December, not breast feeding currently. She had prolonged cough and respiratory symptoms March to April, but did get better aside from a persistent rattling sensation on the left side of her chest. Five weeks ago, she developed some worsening recurrent cough again and was started on inhaler. She states that the rattling in her chest got better with that, but she has had some persistent cough, mixed wet and dry. She states this had largely started to resolve and she went for a run on . For the last 2 days, especially today, she has had acutely worsening cough and tight chest with cough fits. She has not noted any wheeze but feels short of breath with these. She has not had any fever. She does have sinus and nasal congestion and ear pressure. She denies ache, pain in the extremities, other new symptoms with this. She states cough continues to be mixed wet and dry. She did need an inhaler 1 other time in the past in the setting of bronchitis. She has not been treated with steroids. She notes that her infant son was just diagnosed with RSV. Related Data Previous Rx's Medication Instructions Recorded cephalexin 500 mg PO TID #30 cap 03/22/18 azithromycin See Label Instructions .ROUTE 07/01/18 .COMPLEX #6 tab hydrocodone-acetaminophen [[place]] 1 tab PO Q4-6H PRN #10 tab 07/01/18 prednisone 40 mg PO DAILY 3 Days #6 tab 07/01/18 Allergies Allergy/AdvReac Type Severity Reaction Status Date / Time No Known Drug Allergies Allergy Verified 03/22/18 10:23 Review of Systems <Farzaneh Canales PA-C - Last Filed: 07/01/18 22:05> Review of Systems ROS Unobtainable: All systems reviewed & are unremarkable except as noted in HPI and below Exam <Farzaneh Canales PA-C - Last Filed: 07/01/18 22:05> Narrative Exam Narrative: GENERAL APPEARANCE: Patient coughing hard, in NAD HEAD: No sinus TTP. EYES: PERRL, EOMI. EARS: Normal auditory canals, TMS intact with normal light reflexes. ORAL CAVITY: Normal oropharynx. THROAT: Mild erythema, no exudate NECK/THYROID: Neck supple, full range of motion, few small anterior cervical nodes LUNGS: Clear to auscultation bilaterally, coarse, barky cough frequently on exam HEART: RRR without murmur, nl S1, S2, no S3 or S4. EXTREMITIES: No edema, no calf tenderness DERMATOLOGIC: No exanthem Initial Vital Signs Initial Vital Signs: Vital Signs Temperature 98.8 F 07/01/18 14:53 Pulse Rate 118 H 07/01/18 14:53 Respiratory Rate 20 07/01/18 14:53 Blood Pressure 137/83 07/01/18 14:53 Pulse Oximetry 98 07/01/18 14:53 <Santiago Munguia DO - Last Filed: 07/02/18 07:06> Initial Vital Signs Initial Vital Signs: Vital Signs Temperature 98.8 F 07/01/18 14:53 Pulse Rate 118 H 07/01/18 14:53 Respiratory Rate 20 07/01/18 14:53 Blood Pressure 137/83 07/01/18 14:53 Pulse Oximetry 98 07/01/18 14:53 Course <MARIE Ashby Last Filed: 07/01/18 22:05> Additional Information: Patient has tried numerous cough medicines prescribed for her. She has harsh, persistent cough, improved a little bit after nebulizer treatments and hydrocodone/acetaminophen. She has posttussive vomiting. She is not short of breath aside from coughing spells and is afebrile. She was given azithromycin although suspect pertussis is not likely given her overall good health, vaccination status and lack of known exposures. She will continue her inhaler and she was given steroids to help with reactive airways. She was given a small prescription of hydrocodone/acetaminophen, which she has taken without problems in the past, to help with her cough. She agreed to return if any acutely worsening symptoms, otherwise follow up with PCP in the next 2-3 days for recheck Orders Ordered: Discontinued Medications Hydrocodone Bitart/Acetaminophen ([place] 5/325) 2 tab PO NOW ONE Stop: 07/01/18 16:45 Last Admin: 07/01/18 17:04 Dose: 2 tab Albuterol (Ventolin) 2.5 mg INH NOW ONE Stop: 07/01/18 15:06 Last Admin: 07/01/18 15:00 Dose: 2.5 mg Albuterol (Ventolin) 2.5 mg INH NOW ONE Stop: 07/01/18 16:10 Last Admin: 07/01/18 16:18 Dose: 2.5 mg Albuterol/Ipratropium (Duoneb) 3 ml INH NOW ONE Stop: 07/01/18 15:02 Last Admin: 07/01/18 14:50 Dose: 3 ml Guaifenesin/Codeine Phosphate (Guaifenesin/Codeine Liquid) 10 ml PO NOW ONE Stop: 07/01/18 15:11 Last Admin: 07/01/18 15:38 Dose: 10 ml Prednisone (Deltasone) 40 mg PO NOW ONE Stop: 07/01/18 15:11 Last Admin: 07/01/18 15:22 Dose: 40 mg Vital Signs - 8 hr 07/01/18 14:53 07/01/18 14:57 07/01/18 16:18 Temperature 98.8 F Pulse Rate 114 H 106 H 89 Respiratory Rate 20 14 14 Blood Pressure 137/83 Blood Pressure [Left Arm] Pulse Oximetry 100 98 99 07/01/18 16:22 07/01/18 17:50 Temperature Pulse Rate 93 H 107 H Respiratory Rate 16 Blood Pressure 117/81 Blood Pressure [Left Arm] 100/73 Pulse Oximetry 100 98 <Santiago Munguia DO - Last Filed: 07/02/18 07:06> Orders Ordered: Discontinued Medications Hydrocodone Bitart/Acetaminophen ([place] 5/325) 2 tab PO NOW ONE Stop: 07/01/18 16:45 Last Admin: 07/01/18 17:04 Dose: 2 tab Albuterol (Ventolin) 2.5 mg INH NOW ONE Stop: 07/01/18 15:06 Last Admin: 07/01/18 15:00 Dose: 2.5 mg Albuterol (Ventolin) 2.5 mg INH NOW ONE Stop: 07/01/18 16:10 Last Admin: 07/01/18 16:18 Dose: 2.5 mg Albuterol/Ipratropium (Duoneb) 3 ml INH NOW ONE Stop: 07/01/18 15:02 Last Admin: 07/01/18 14:50 Dose: 3 ml Guaifenesin/Codeine Phosphate (Guaifenesin/Codeine Liquid) 10 ml PO NOW ONE Stop: 07/01/18 15:11 Last Admin: 07/01/18 15:38 Dose: 10 ml Prednisone (Deltasone) 40 mg PO NOW ONE Stop: 07/01/18 15:11 Last Admin: 07/01/18 15:22 Dose: 40 mg Vital Signs - 8 hr 07/01/18 14:53 07/01/18 14:57 07/01/18 16:18 Temperature 98.8 F Pulse Rate 114 H 106 H 89 Respiratory Rate 20 14 14 Blood Pressure 137/83 Blood Pressure [Left Arm] Pulse Oximetry 100 98 99 07/01/18 16:22 07/01/18 17:50 Temperature Pulse Rate 93 H 107 H Respiratory Rate 16 Blood Pressure 117/81 Blood Pressure [Left Arm] 100/73 Pulse Oximetry 100 98 MDM - SOB/Dyspnea <Farzaneh Canales PA-C - Last Filed: 07/01/18 22:05> Lab Data Lab Results 07/01/18 Range/Units 15:25 Influenza A & B (PCR) Negative (Negative) RSV (PCR) Cancelled Imaging Data Chest x-ray: Radiologist's impression: 15 Farzaneh Canales PA-C Find Patient Imaging ACTIVITY DATE EXAM STATUS AUTHOR 07/01/18 15:[address] [address] XRay Report Signed Patient: Mohsen Mike [facility]#: [id number] : 1995Acct:[id number] Age/Sex: 22 / FDate of Service: 07/01/18 Loc: ED Accession Number: [id number] Procedure: XR chest 2V Ordering Provider: Farzaneh Canales P.A-C PROCEDURE: XR CHEST 2V INDICATIONS: cough, sob TECHNIQUE: 2 views of the chest were acquired. COMPARISON: None. FINDINGS: Surgical changes and devices: None. Lungs and pleura: No pleural effusions or pneumothorax. Lungs are clear. Mediastinum: Mediastinal contours are normal. Heart size is normal. Bones and chest wall: No suspicious bony abnormalities. Soft tissues appear unremarkable. IMPRESSION: Chest without acute cardiopulmonary abnormalities. No focal air space disease. Dictated by: Edinson Martinez M.D. on 07/01/2018 at 15:56 Approved by: Edinson Martinez M.D. on 07/01/2018 at 15:56 <Santiago Munguia, - Last Filed: 07/02/18 07:06> Lab Data Lab Results 07/01/18 Range/Units 15:25 Influenza A & B (PCR) Negative (Negative) RSV (PCR) Cancelled Discharge Plan Departure Patient Disposition: Home Clinical Impression: Reactive airway disease, Bronchitis Discharge Date/Time: 07/01/18 17:51 Interventions: ED Discharge Assessment Last Done: 07/01/18 17:50 Instructions: DI for Acute Bronchitis, DI for Reactive Airway Disease-Adult Activity Restrictions/Additional Instructions: Please return to the ED as we talked about if you have any acutely worsening symptoms. Otherwise, please use your inhaler as often as needed for tight chest or coughing spells. Please continue the steroids (take your next dose of prednisone tomorrow) for the next few days. I have given you a prescription for azithromycin on the off chance that you have pertussis (whooping cough), though I think that is very unlikely given that you are vaccinated, young and do not have any known exposures. This can help shorten the course of it. It is more likely that you have a viral infection and that you are coughing and tight in your chest due to reactive airways, like you have had in the past. I have given you a prescription for hydrocodone/acetaminophen, since the previous cough medicines you have not tried and this seems to help a little bit. This may help you get some rest over the weekend. You can take it if needed, but remember it can make you sleepy and not to drive. You may wish to add some over -the-counter guaifenesin (i.e. Mucinex) to help thin the secretions. Please call your PCP 1st thing on Tuesday morning and be seen for follow-up in the next 48-72 hours to assess your progress on the steroids and these medications. Prescriptions: New azithromycin 250 mg tablet See Label Instructions .ROUTE .COMPLEX Qty: 6 RF: 0 hydrocodone-acetaminophen [[place]] 5-325 mg tablet 1 tab PO Q4-6H PRN (Reason: cough) Qty: 10 RF: 0 prednisone 20 mg tablet 40 mg PO DAILY 3 Days Qty: 6 RF: 0 No Action cephalexin 500 mg capsule 500 mg PO TID Qty: 30 RF: 0 Referrals: [facility] [Provider Group] <Santiago Munguia, - Last Filed: 07/02/18 07:06> Cosign ED Attending Alex Attestation: I was available for consultation during this patient's emergency department encounter
[2018-07-01] MEDS: CODEINE/GUAIFENESIN LIQUID 10ML UDC 10 ML PO (15:38)
[2018-07-01 16:18] VITALS: PULSE 89; RESP 14; O2SAT 99
[2018-07-01 16:22] VITALS: BP 100/73; PULSE 93; RESP 16; O2SAT 100
[2018-07-01 16:34] LABS: Influenza A and B by PCR Rapid Negative (Negative)
[2018-07-01] MEDS: HYDROCODONE/ACET 5/325 TABLET 2 TAB PO (17:04)
[2018-07-01 17:50] VITALS: BP 117/81; PULSE 107; O2SAT 98
== END 2018-07-01 17:51 | disposition home or self-care (01) ==
PROVIDERS: Emergency Provider Internal Medicine
DX: J45.909 Unspecified asthma, uncomplicated (principal); J40 Bronchitis, not specified as acute or chronic
CPT/HCPCS: 71046; 87400; 94640; 99282; 99284; A9270; J7613